=== PATIENT | female | born 1935 | race Caucasian/White ===

== ENCOUNTER → 2017-11-16 | Outpatient (CLI) | payer OTHER | LOC: RAD 13:59 | DX: Z12.31 Encounter for screening mammogram for malignant neoplasm of breast (principal) ==

== ENCOUNTER → 2019-01-12 | Outpatient (CLI) | payer OTHER | LOC: RAD 13:00 | DX: Z12.31 Encounter for screening mammogram for malignant neoplasm of breast (principal) ==

== ENCOUNTER → 2020-09-24 | Outpatient (CLI) | payer OTHER ==
[~2020-09-24] MED LIST: APPLE CIDER VI300 MG PO; CITRACAL + D E1 EACH PO; METAMUCIL1 EAC1 PO; MULTI VITAMIN1 EACH PO
[2020-09-24 12:17] LABS: URINE BILIRUBIN NEGATIVE (Negative); URINE BLOOD NEGATIVE (Negative); URINE CLARITY CLEAR; URINE COLOR YELLOW; URINE GLUCOSE-RANDOM* NEGATIVE (Negative); URINE KETONES NEGATIVE (Negative); URINE LEUKOCYTES-REFLEX NEGATIVE (Negative); URINE NITRITE-REFLEX NEGATIVE (Negative); URINE PROTEIN (DIPSTICK) NEGATIVE (Negative); URINE SPECIFIC GRAVITY <= 1.005 (1.005-1.035); URINE UROBILINOGEN 0.2 E.U./dl (0.2-1.0)
[2020-09-24 12:22] LABS: HEMATOCRIT 37.2 % (37.0-47.0); HEMOGLOBIN 12.6 gm/dL (12.0-15.0); MCH 31.7 pg (26.0-34.0); MCHC 33.8 g/dL (28.0-37.0); MCV 93.8 fL (80.0-100.0); RBC 3.97 mil/uL (4.20-5.00); RDW 13.4 % (10.5-14.5); WBC 5.7 thou/uL (4.0-11.0)
--- NOTE | 2020-09-24 12:30 | EKG ---
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 09/24/20 1230 1207 1207 Amrit Munguia MD, FACC /EPI
[2020-09-24 12:33] LABS: ALBUMIN 3.9 g/dL (3.4-5.0); CALCIUM 9.1 mg/dL (8.5-10.1); CREATININE 0.7 mg/dL (0.6-1.0); POTASSIUM 4.4 mmol/L (3.5-5.1)
== END ==
LOC: PAC 09:44
PROVIDERS: ATTEND Orthopaedic Surgery
DX: Z01.812 Encounter for preprocedural laboratory examination (principal); Z01.810 Encounter for preprocedural cardiovascular examination; M16.11 Unilateral primary osteoarthritis, right hip; Z91.048 Other nonmedicinal substance allergy status

== ENCOUNTER 2020-10-03 10:00 | Inpatient (IN) | payer OTHER ==
[~2020-10-03] VITALS: Ht 165.1 cm; Wt 64.5 kg
[2020-10-03 12:02] VITALS: BP 179/80
[2020-10-03 18:23] VITALS: BP 145/81
--- NOTE | 2020-10-04 02:47 | NUR ---
PT FROM SX ASSESSED AT START OF SHIFT. ADMISSION DONE, PT C/O HAVING TROUBLES VOIDING BLADDER SCAN DONE OVER 670CC. 750ML OUTPUT. EVENING MEDS GIVEN AND PT BELEN IT WELL. FALL PREC IN PLACE, CALL LIGHT AT REACH. IV INTAQCT AND FLUIDS INFUSING WILL CONT WITH POC TILL EOS.
[2020-10-04 04:50] VITALS: BP 107/61
--- NOTE | 2020-10-04 10:17 | NUR ---
A/O x4. Room air. Still has been bedbound until PT assess her. L IV forearm flushes well, dressing gry clean and intact. D5 1/2 ns INFUSING @ 100. Has Piko dressing to right hip- dry, clean and intact.
--- NOTE | 2020-10-04 12:57 | NUR ---
ASSESSMENT: CM REVIEWED CHART AND SPOKE WITH PATIENT AT THE BEDSIDE. PT IS S/P RIGHT TIM. PT REPORTS THAT SHE LIVES IN [place]DEPENDENT LIVING APT WITH HER AT [facility]. PT REPORTS THAT SHE HAS NO STEPS TO ENTER OR ONCE INSIDE. PT REPORTS SHE HAS A WALKER TO ASSIST WITH AMBULATION. PT STATES THAT [facility] PROVIDES THEM 3 MEALS/DAY AND EVEN DELIVERS THEM. PT REPORTS THAT SHE HAS NEVER HAD HH IN THE PAST. CM DISCUSSED ROLE. PT WORKED WITH PHYSICAL THEARPY AND RECOMMENDING SNF AT THIS TIME. PT STATES SHE PREFERS TO STAY AT [facility] IF FOR SNF. CM FAXED REFERRAL TO [facility] SNF AND NOTIFIED CARL IN ADMISSIONS. WE WILL SEE IF PATIENT IS ABLE TO PROGRESS WITH THERAPY TO GO BACK WITH HOME HEALTH OR NEED SNF AT THE TIME OF DISCHARGE. CM WILL CONTINUE TO FOLLOW TO ASSIST NEEDED.
[2020-10-04 16:16] VITALS: BP 135/62
--- NOTE | 2020-10-05 03:58 | NUR ---
PT IS A/O X3 WITH SOME FORGETFULLNESS. IS UP WITH ASSISTANCE AND PLEASANT AND COOPERATIVE. C/O PAIN. PRN PAIN MEDICATION GIVEN DIRECTED. URINE RETENTION NOTED AND BLADDER SCAN SHOWED 866 IN THE BLADDER. PER SHARON MADRIGAL PEREZ PLACED. DRSG TO RIGHT HIP IS C/D/I. SCD'S AND VINCENT HOSE IN PLACE. FALL PRECAUTIONS IN PLACE, CALL LIGHT IS WITHIN REACH. WILL CONTINUE TO MONITOR.
[2020-10-05 07:50] VITALS: BP 113/56
--- NOTE | 2020-10-05 12:30 | NUR ---
PATIENT ALERT & ORIENTED X4. VERY PLEASANT. COMPLAINTS OF PAIN THIS AM. PRN MEDICATION GIVEN. ICE PACK TO RIGHT HIP. VINCENT HOSE IN PLACE. SCDS ON WHILE IN BED. PHYSICAL THERAPY WORKED WITH PATIENT. UP IN CHAIR AT THIS TIME. IS PRESENT WITH PATIENT AT THE BEDSIDE. PEREZ WAS PLACED LAST NIGHT DUE TO URINE RETENTION. WILL CONTINUE TO MONITOR.
[2020-10-05] MEDS ORDERED: HYDROCODON-ACE1 EAC7 PO (13:14)
[2020-10-05] MEDS ORDERED: TRI-BUFFERED A325 M1 PO (13:14)
--- NOTE | 2020-10-05 13:18 | NUR ---
ON-GOING ASSESSMENT: CM REVIEWED CHART AND SPOKE WITH ATTENDING WHO STATES PATIENT MAY BE ABLE TO DISCHARGE TO SNF TOMORROW PENDING HER PROGRESSION. PT HAS CATHETER DUE TO RETENTION THAT WILL BE REMOVED TODAY TO SEE IF PATIENT IS ABLE TO VOID AND POSSIBLE DISCHARGE TO SNF TOMORROW. RUBIO UPDATED CARL IN ADMISSIONS AT [facility] OF POSSIBLE DISCHARGE TOMORROW. IT PATIENT IS CLEARED TO DISCHARGE TOMORROW BEDSIDE RN IS TO CALL, LANCE, THE RN STRUCTURAL WELDER AT [facility] AT [phone] AND HE WILL ARRANGE/FACILITATE DISCHARGE. PT WILL NEED TO BE SENT WITH A CHART COPY. DISCHARGE PAPERWORK INCLUDING DISCHARGE SUMMARY/ORDERS WILL NEED TO BE FAXED TO [facility] TO FAX [phone]. CONTACT PATIENTS TO NOTIFY HIM.
--- NOTE | 2020-10-05 15:33 | O ---
[facility] [place] [address] OPERATIVE REPORT Name: KHALIDA ABRAMS Room #: 437-P ADM IN M.R.#: [id number] Admission: 10/03/20 Attend Phys: Boby Small MD Discharge: Date of : 37 Report #: [id number] THIS REPORT FOR: cc: Sukumar Davis James A. DO Abraham, Scott M. MD ~ DATE OF SERVICE: 10/03/2020 PREOPERATIVE DIAGNOSIS: Right hip osteoarthritis. POSTOPERATIVE DIAGNOSIS: Right hip osteoarthritis. PROCEDURE: Right total hip arthroplasty. SURGEON: Boby Small MD. ANESTHESIA: LMA. IMPLANTS: [employer] size 13 standard offset Synergy cemented stem, a size 54 R3 acetabular cup with 2 acetabular screws, a size 36, -3 cobalt chrome head. ESTIMATED BLOOD LOSS: 150 mL. COMPLICATIONS: None. SPECIMENS: None. CONDITION UPON LEAVING THE OR: Stable. INDICATIONS FOR PROCEDURE: The patient is an 85-year-old female with severe right hip osteoarthritis. She had failed conservative measures for this and after discussion with her, she elected for right total hip arthroplasty. DESCRIPTION OF PROCEDURE: Risks, benefits, alternatives, complications were discussed in detail with the patient including but not limited to risk of anesthesia, risk of damage to nerves, arteries, blood vessels, risk for infection, bleeding, leg length discrepancy, instability, DVT, PE, and need for reoperation. Informed consent was obtained from the patient. Right hip was appropriately marked in the preoperative holding area. IV Ancef was given for preoperative antibiotics. She was brought to the operating room and placed in supine position on the operating table. LMA anesthesia was induced without complication. She was placed in the left lateral decubitus position with the right hip uppermost. Right hip and lower extremity were prepped and draped in normal sterile fashion. Timeout was performed, properly identifying the patient and procedure as well as the instrumentation and implants. All in the operating [address] [address] OPERATIVE REPORT Name: KHALIDA ABRAMS Room #: 437-P [facility] IN M.R.#: [id number] Admission: 10/03/20 Attend Phys: Boby Small MD Discharge: Date of : 37 Report #: [id number] room were in agreement. Standard posterior approach to the hip was made with 10 blade through the skin. Dissection was taken down to the fascia with Bovie cautery. Hull elevator was used to clean off the fascia. Fresh 10 blade was used to make a fascial incision. This was taken proximally and distally with curved Ashraf scissor. Charnley retractor was placed. Trochanteric bursa was taken down with Bovie cautery. Piriformis tendon was identified, tagged and taken down with Bovie. Short external rotators were also taken down with Bovie cautery. Capsulotomy was made and capsule ends were tagged for later repair. The hip was dislocated. There was extensive osteoarthritic change of the femoral head. Femoral neck cut was made 1 cm proximal to the lesser trochanter based on preoperative templating. The femoral head was removed. Deep acetabular retractors were placed. Labrum was removed sharply. Pulvinar was removed with Bovie cautery. Acetabulum was then sequentially reamed up to a size 54 at which point there was excellent bleeding cancellous bone. A size 53 trial cup was placed, found to have a good fit. Final size 54 R3 acetabular cup was placed and seated. Two acetabular screws were placed for backup fixation and a polyethylene liner for a size 36 head was placed. Attention was turned to the femur. This was reamed and broached up to a size 13, at which point the size 13 broach was stable, was trialed with a high offset neck with a 36+0 head. Hip was reduced, taken through range of motion, found to be stable, found to be fairly tight anteriorly. We dislocated the hip, switched to a standard offset neck and tried this with a +0 head. Hip was reduced, taken through range of motion, found to be stable, found to have equal leg length. Hip was dislocated. Broach was removed. We then cemented in place a size 13 standard offset Synergy cemented stem based on the patient's age and bone quality. After the cement cured, this was trialed with a +0, 36 head. This was found to be slightly long compared to the left. We then trialed this with a 36, -3 head. The hip was reduced, taken through a range of motion and found to be stable, found to have equal leg length. Hip was dislocated and a final size 36, -3 cobalt chrome head was placed. Hip again was reduced, taken through range of motion, found to be stable, found to have equal leg lengths. Wound was thoroughly irrigated with normal saline. Periarticular injection consisting of morphine, ropivacaine, epinephrine, Toradol was placed around the hip joint capsule. A gram of vancomycin was placed deep in the joint. The capsule and piriformis were repaired with 0 FiberWire. Fascia was closed with 0 Vicryl. Skin was closed with 2-0 Vicryl, skin staple and a MARCELO dressing was applied. The patient tolerated this procedure well and went to recovery room under care of anesthesia postoperatively. <ELECTRONICALLY SIGNED> By: Boby Small MD 10/05/20 1533 1513 1600 Boby Small MD /nt
[2020-10-05 16:25] VITALS: BP 124/60
[2020-10-05 20:30] VITALS: BP 122/62
--- NOTE | 2020-10-06 04:14 | NUR ---
ALERT AND ORIENTED. SLIGHTLY FORGETFUL. GETS UP TO BSC X 1, REQUIRES TIME.DRSG TO R HIP C/D/I.PAIN MANAGED BY NORCO.
[2020-10-06 04:50] VITALS: BP 123/59
[2020-10-06 07:12] VITALS: BP 147/69
--- NOTE | 2020-10-06 09:26 | NUR ---
ASSUMED PT CARE THIS AM. PT IS ALERT & ORIENTED X4 BUT FORGETFUL AT TIMES. PT HAS VINCENT HOSES BILATERAL KNEE HIGH, MARCELO DRESSING, SCD. PT TOLERATED MEDICATION AND DIET WELL. NO C/O OF NAUSEA AND VOMITING. PT IS ON ROOM AIR. PT HAS BEEN VOIDING. INFORMED AND CALLED FACILITY ABOUT VOIDING INDEPENDENTLY. TOLD SAND HAULER TO FAX AND CREATE CHART COPY. INFORMED PT ABOUT DC TO FACILITY. WILL CALL TO INFORMED WELL. WILL CALL FOR A HANDS OFF REPORT TO FACILITY. TRANSPORTATION WILL BE AROUND 11AM. WILL CONTINUE TO MONITOR PT. FOLLOW POC.
== END 2020-10-06 11:00 | DRG 470 ==
LOC: OR → 4S 18:07 → OR 18:08 → 4S 18:08
PROVIDERS: ADMIT Orthopaedic Surgery; ATTEND Orthopaedic Surgery
PROC: 0SR9029 Replacement of Right Hip Joint with Metal on Polyethylene Synthetic Substitute, Cemented, Open Approach (ICD-10-PCS; principal; 2020-10-03)
DX: M16.11 Unilateral primary osteoarthritis, right hip (principal); Z20.822 Contact with and (suspected) exposure to COVID-19; Z79.82 Long term (current) use of aspirin; Z79.899 Other long term (current) drug therapy
CPT/HCPCS: 10195; 50010; 50101; 50382; 50414; 51057; 51130; 51225; 51226; 51412; 53000; 53078; 53367; 56460; 56524; 56528; 56530; 57095; 57103; 62110; 62900; 70005

== ENCOUNTER 2020-12-16 12:24 | Emergency (ER) | payer OTHER ==
[~2020-12-16] VITALS: Ht 165.1 cm; Wt 61.2 kg
[~2020-12-16 12:24] MED LIST changes: +HYDROCODON-ACE1 EAC7 PO; +TRI-BUFFERED A325 M1 PO
[2020-12-16 12:30] VITALS: BP 156/86
== END 2020-12-16 14:06 | disposition home or self-care (01) ==
LOC: ER 12:24
DX: S39.012A Strain of muscle, fascia and tendon of lower back, initial encounter (principal); Z90.710 Acquired absence of both cervix and uterus; Z90.49 Acquired absence of other specified parts of digestive tract; Z79.899 Other long term (current) drug therapy; X58.XXXA Exposure to other specified factors, initial encounter; Y93.89 Activity, other specified; Y92.89 Other specified places as the place of occurrence of the external cause; Y99.8 Other external cause status